=== PATIENT | female | born 1930 | race Caucasian/White ===

== ENCOUNTER 2017-09-16 08:10 | Outpatient (CLI) | payer MEDICARE, OTHER ==
--- NOTE | 2017-09-16 15:50 | MRI ---
MRI BRAIN WITHOUT CONTRAST: 09/16/17 Multiplanar and multisequential imaging of the brain obtained. HISTORY: Memory impairment. FINDINGS: Mild to moderate cortical volume loss with ventriculomegaly which appears appropriate for the degree of volume loss. There are moderate chronic ischemic white matter changes. No evidence of restricted diffusion. No mass or edema seen. The proximal cerebral arteries and basilar arteries show flow voi ds. Internal carotid arteries appear patent. The exam is degraded due to motion artifact. There is a 1.5 cm mucous retention cyst in the floor of the left maxillary antrum. IMPRESSION: 1. Mild to moderate cortical atrophy. 2. Mild to moderate chronic ischemic white matter change. 3. No evidence of acute process. POS: [facility]
== END 2017-09-16 08:11 | disposition home or self-care (01) ==
LOC: EEG 08:10
PROVIDERS: ATTEND Student in an Organized Health Care Education/Training Program
DX: R41.3 Other amnesia (principal); G31.9 Degenerative disease of nervous system, unspecified
CPT/HCPCS: 70551; 95816